=== PATIENT | female | born 1985 | race Caucasian/White ===

== ENCOUNTER 2017-07-20 23:38 | Emergency (ER) | payer OTHER ==
[2017-07-20] MEDS ORDERED: ALBUTEROL SULFATE 2.5 MG/3 ML VIAL NEB ONE (23:46)
[2017-07-20] MEDS ORDERED: IPRATROPIUM/ALBUTEROL 3 ML VIAL NEB ONE (23:46)
[2017-07-21] MEDS ORDERED: MONTELUKAST 10 MG TAB PO ONE (00:08)
[2017-07-21] MEDS ORDERED: predniSONE 20 MG TAB PO ONE (00:08)
[2017-07-21] MEDS ORDERED: IPRATROPIUM/ALBUTEROL 3 ML VIAL NEB ONE (01:00)
--- NOTE | 2017-07-21 01:14 | ED.PDOC ---
History of Present Illness - General Chief Complaint: Asthma Stated Complaint: shortness of breath, asthma attack Time Seen by Provider: 07/21/17 00:07 Source: patient Exam Limitations: no limitations - History of Present Illness Initial Comments: the patient is a 32-year-old female presenting to the emergency room secondary to an asthma exacerbation. The patient does have long-standing asthma but normally has a controlled with a simple rescue inhaler [place] the city [place] allergies flare and so does her asthma. The last 24 hours she's been unable to control it with her rescue inhaler. No fevers. No chills. No chest pain. No syncope or near syncope. Timing/Duration: 24 hours Severity: moderate Improving Factors: nothing Worsening Factors: nothing Associated Symptoms: cough, malaise, shortness of breath Allergies/Adverse Reactions: Allergies Penicillins Allergy (Verified 07/21/17 00:28) Home Medications: Ambulatory Orders Albuterol Sulfate [Proair Hfa] 2 puff PO PRN 07/21/17 Montelukast [Singulair] 10 mg PO DAILY #30 tab 07/21/17 predniSONE [Prednisone] 20 mg PO DAILY #5 tab 07/21/17 Review of Systems - Review of Systems Constitutional: States: no symptoms reported EENTM: States: no symptoms reported Respiratory: States: cough, short of breath Cardiology: States: no symptoms reported Gastrointestinal/Abdominal: States: no symptoms reported Genitourinary: States: no symptoms reported Musculoskeletal: States: no symptoms reported Skin: States: no symptoms reported Neurological: States: no symptoms reported Endocrine: States: no symptoms reported All other Systems: No Change from Baseline Past Medical History (General) - Patient Medical History Hx Asthma: Yes Surgical History: no surgical history - Vaccination History Hx Tetanus, Diphtheria Vaccination: No Hx Influenza Vaccination: No Hx Pneumococcal Vaccination: No Immunizations Up to Date: No - Social History Hx Tobacco Use: No Hx Alcohol Use: Yes Family Medical History - Family History Mother Family History: Unknown Physical Exam - Physical Exam General Appearance: Alert, Comfortable, No apparent distress Eye Exam: bilateral normal Ears, Nose, Throat: hearing grossly normal, normal ENT inspection, normal pharynx Neck: non-tender, full range of motion, supple Respiratory: chest non-tender, respiratory distress - mild to moderate, decreased breath sounds, accessory muscle use, wheezing Cardiovascular/Chest: normal peripheral pulses, regular rate, rhythm, no edema Peripheral Pulses: radial,right: 2+, radial,left: 2+ Gastrointestinal/Abdominal: soft Rectal Exam: deferred Back Exam: normal inspection, no CVA tenderness, no vertebral tenderness Extremity: normal range of motion, normal inspection, no pedal edema, normal capillary refill Neurologic: alert, normal mood/affect, oriented x 3 Skin Exam: normal color Comments: Vital Signs - 24 hr 07/21/17 07/21/17 00:05 00:15 Temperature 97.8 F Pulse Rate [ 90 90 left] Respiratory 22 22 Rate Blood Pressure 139/94 [left] O2 Sat by Pulse 100 Oximetry Progress - Progress Progress: 07/21/17 01:14 the patient is a 32-year-old female presenting with an asthma exacerbation likely triggered by her allergies for this environment. The patient was given several nebulizer treatments with significant improvement. She was given a dose of oral prednisone and oral Singulair. Chest x-ray showed no significant infiltrate. The patient will be discharged with a short prescription for oral prednisone as well as a few weeks worth of Singulair. ER warnings were given for any worsening. - Results/Orders Results/Orders: chest x-ray shows mild air trapping but no other acute disease. Departure - Departure Clinical Impression: Asthma Qualifiers: Asthma severity: mild persistent Asthma complication type: with acute exacerbation Qualified Code(s): J45.31 - Mild persistent asthma with (acute) exacerbation Disposition: Discharge to Home or Self Care Condition: Fair Departure Forms: ED Discharge - Pt. Copy, Patient Portal Self Enrollment Instructions: DI for Asthma -- Adult Diet: regular diet Activity: increase activity as tolerated Prescriptions: Montelukast [Singulair] 10 mg PO DAILY #30 tab predniSONE [Prednisone] 20 mg PO DAILY #5 tab Home Medications: Ambulatory Orders Albuterol Sulfate [Proair Hfa] 2 puff PO PRN 07/21/17 Montelukast [Singulair] 10 mg PO DAILY #30 tab 07/21/17 predniSONE [Prednisone] 20 mg PO DAILY #5 tab 07/21/17 Additional Instructions: the patient is a 32-year-old female presenting with an asthma exacerbation likely triggered by her allergies for this environment. The patient was given several nebulizer treatments with significant improvement. She was given a dose of oral prednisone and oral Singulair. Chest x-ray showed no significant infiltrate. The patient will be discharged with a short prescription for oral prednisone as well as a few weeks worth of Singulair. ER warnings were given for any worsening.
--- NOTE | 2017-07-21 01:39 | RAD ---
Examination: XR CHEST 2 VIEWS dated 07/21/2017 12:08 AM CDT History: sob, hx of asthma Comparison: None Technique: Frontal and lateral views of the chest Findings: The lungs are clear bilaterally. No pneumothorax or pleural effusion. The cardiomediastinal silhouette is within normal limits. Impression: No acute disease. Electronically signed by: Domo Hale MD 07/21/2017 1:37 AM CDT
[2017-07-21 02:58] VITALS: BP 121/73; TEMP 97.7
[2017-07-21] MEDS ORDERED: ALBUTEROL SULFATE 2.5 MG/3 ML VIAL NEB ONE (07:38)
[2017-07-21 08:29] VITALS: O2SAT 100
== END 2017-07-21 02:25 | disposition home or self-care (01) ==
LOC: ER 23:38
DX: J45.31 Mild persistent asthma with (acute) exacerbation (principal); Z88.0 Allergy status to penicillin; Z79.899 Other long term (current) drug therapy
CPT/HCPCS: 71020; 94640; J7512; J7611; J7620